=== PATIENT | male | born 1955 | race Hispanic/Latino ===

== ENCOUNTER 2019-10-23 13:27 | Emergency (ER) | payer MEDICARE ==
[2019-10-23] MEDS ORDERED: ONDANSETRON 4 MG/2 ML INJ IV ONE (13:40)
[2019-10-23] MEDS ORDERED: HYDROmorphone 1 MG/1 ML INJ IV ONE (13:40)
[2019-10-23] MEDS ORDERED: KETOROLAC 30 MG/1 ML INJ IV ONE (13:40)
[2019-10-23] MEDS ORDERED: IPRATROPIUM/ALBUTEROL SULFATE 3 ML AMPUL.NEB IH ONE (13:42)
--- NOTE | 2019-10-23 13:46 | Emergency Department Report ---
HPI - General PUI?: No Time Seen by Provider: 10/23/19 13:31 - HPI HPI: Room 26 The patient is a 64-year-old male present with a chief complaint of low back pain. Patient states he has a history of chronic low back pain requiring surgery with a fusion and plate in 1984. Patient states he also had a vagal nerve stimulator placed. Patient states yesterday he again developed low back pain. Patient denied any preceding trauma or history of fever. Patient denies dysuria ED Past Medical Hx - Past Medical History Hx Hypertension: Yes Hx CVA: Yes (L sided deficits) Hx Diabetes: Yes Hx Psychiatric Treatment: Yes (PTSD) Hx COPD: Yes Additional medical history: high chol, chronic back pain, Acute RF in 2006 that has resolved - Surgical History Additional Surgical History: cath, (unsure what they cathed and what results were) 2006, vagal nerve stimulator implantation, fusion of L4, L5, S1 after fracture. Hardware of the lumbar spine - Family History Family history: no significant - Social History Smoking Status: Current Every Day Smoker (1 pack/day) Substance Use Type: None (Denies illicit drug use), Alcohol (Occasional) - Medications Home Medications: Home Medications Medication Instructions Recorded Confirmed Last Taken Type Baclofen [Lioresal] 5 mg PO Q6HR 10/07/13 10/08/17 10/07/13 History Gabapentin 300 mg PO TID 10/07/13 10/08/17 10/06/17 14:00 History Sertraline [Zoloft] 200 mg PO QDAY 10/07/13 10/08/17 10/06/17 09:00 History Simvastatin (Nf) [Zocor TAB] 40 mg PO QHS 10/07/13 10/08/17 10/06/17 22:00 History lisinopriL [Zestril TAB] 20 mg PO QDAY 10/07/13 10/08/17 10/06/17 09:00 History tiZANidine [Zanaflex 4mg TAB] 8 mg PO DAILY 10/08/17 10/08/17 10/06/17 09:00 History Folic Acid 0.4 mg PO QDAY #30 tablet 10/15/17 Unknown Rx Nicotine [Habitrol] 21 mg TD DAILY #30 patch 10/15/17 Unknown Rx Oxycodone HCl/Acetaminophen 1 each PO Q6HR PRN #14 tablet 10/15/17 Unknown Rx [Percocet 10/325 mg] Thiamine [Vitamin B-1] 100 mg PO QDAY #30 tablet 10/15/17 Unknown Rx ED Review of Systems ROS: Stated complaint: SEVERE BACK PAIN Other details as noted in HPI Constitutional: denies: fever Respiratory: no symptoms reported Endocrine: no symptoms reported Genitourinary: denies: dysuria Musculoskeletal: back pain Physical Exam - Physical Exam Physical Exam: GENERAL: The patient is well-developed well-nourished male lying on stretcher not appearing to be in acute distress. [] HEENT: Normocephalic. Atraumatic. Extraocular motions are intact. Patient has moist mucous membranes. NECK: Supple. Trachea midline CHEST/LUNGS: Clear to auscultation. There is no respiratory distress noted. HEART/CARDIOVASCULAR: Regular. There is no tachycardia. There is no gallop rub or murmur. ABDOMEN: Abdomen is soft, nontender. Patient has normal bowel sounds. There is no abdominal distention. SKIN: There is no rash. There is no edema. There is no diaphoresis. NEURO: The patient is awake, alert, and oriented. The patient is cooperative. The patient has no focal neurologic deficits. The patient has normal speech MUSCULOSKELETAL: There is tenderness of the lumbar spine. There is no evidence of acute injury. ED Course - Reevaluation(s) Reevaluation #1: 10/23/19 14:50 Patient states his pain is improved. Patient states he is under pain management and not allowed to receive prescriptions for pain medication to go home with. ED Medical Decision Making - Radiology Data Radiology results: report reviewed (Lumbar spine x-ray), image reviewed (Lumbar spine x-ray) interpreted by me: Lumbar spine x-ray-no acute fractures, hardware in place, no other foreign body seen - Differential Diagnosis Acute on chronic back pain, occult fracture Critical care attestation.: If time is entered above; I have spent that time in minutes in the direct care of this critically ill patient, excluding procedure time. ED Disposition Clinical Impression: Acute exacerbation of chronic low back pain Disposition: TO HOME OR SELFCARE Is pt being admited?: No Does the pt Need Aspirin: No Condition: Stable Instructions: Acute Low Back Pain (ED), Chronic Back Pain (ED) Additional Instructions: Return to the emergency department should you develop worsening symptoms, inability to tolerate food or liquids, high fever or any other concerns Referrals: PRIMARY CARE, [Referring] - SUZANNE (Please follow-up with your primary physician and pain care physician for further management) Time of Disposition: 14:51
--- NOTE | 2019-10-23 14:32 | XRay Report ---
LUMBAR SPINE 3 VIEWS INDICATION: Low back pain. History of chronic pain COMPARISON: None. FINDINGS: No acute, displaced fracture is seen. There is minimal retrolisthesis of L3 on L4 with mild associated disc space widening anteriorly at th is level. Postsurgical changes are seen at the lower lumbar spine posteriorly. There is mild diffuse spondylosis. CONCLUSION: 1. No acute findings. 2. Degenerative changes, as above. Signer Name: Asa Kothari MD Signed: 10/23/2019 2:27 PM Workstation Name: [email or web address]
[2019-10-23 15:25] VITALS: BP 138/77
== END 2019-10-23 15:20 | disposition home or self-care (01) ==
LOC: ED 13:27
DX: M54.5 Low back pain (principal); G89.29 Other chronic pain; I10 Essential (primary) hypertension; E11.9 Type 2 diabetes mellitus without complications; J44.9 Chronic obstructive pulmonary disease, unspecified; F17.200 Nicotine dependence, unspecified, uncomplicated; Z86.73 Personal history of transient ischemic attack (TIA), and cerebral infarction without residual deficits; Z98.890 Other specified postprocedural states; Z79.899 Other long term (current) drug therapy; Z88.8 Allergy status to other drugs, medicaments and biological substances
CPT/HCPCS: 72100; 94640; 96374; 96375; 99284; J1170; J1885; J2405; 94644

== ENCOUNTER 2020-04-04 23:36 | Observation (INO) | payer MEDICARE ==
--- NOTE | 2020-04-05 00:12 | Emergency Department Report ---
ED General Adult HPI - General Chief complaint: Hyperglycemia Stated complaint: HIGH BLOOD SUGAR Time Seen by Provider: 04/05/20 00:07 Source: patient, EMS Mode of arrival: Ambulatory Limitations: No Limitations - History of Present Illness Initial comments: 64-year-old male, history of diabetes, presents to ED with elevated glucose. Patient states his glucose has been running high over the last month or so. Patient states he currently takes Metformin, glipizide, and Jardiance. Patient states he recently had an appointment with his physician and another diabetic medication was added, however, he does not know the name and he has not yet picked it up from the pharmacy. Patient denies any fever, nausea, vomiting. Patient reports a chronic cough for the last 3 months. He attributes this to the fact that he started smoking again. Patient states he was tested for Covid and was negative. Patient reports alcohol and tobacco use. -: month(s) (1) Consistency: intermittent Improves with: none Worsens with: none Associated Symptoms: cough. denies: fever/chills, nausea/vomiting Treatments Prior to Arrival: none - Related Data Home Medications Medication Instructions Recorded Confirmed Last Taken Baclofen [Lioresal] 5 mg PO Q6HR 10/07/13 10/08/17 10/07/13 Gabapentin 300 mg PO TID 10/07/13 10/08/17 10/06/17 14:00 Sertraline [Zoloft] 200 mg PO QDAY 10/07/13 10/08/17 10/06/17 09:00 Simvastatin (Nf) [Zocor TAB] 40 mg PO QHS 10/07/13 10/08/17 10/06/17 22:00 lisinopriL [Zestril TAB] 20 mg PO QDAY 10/07/13 10/08/17 10/06/17 09:00 tiZANidine [Zanaflex 4mg TAB] 8 mg PO DAILY 10/08/17 10/08/17 10/06/17 09:00 Previous Rx's Medication Instructions Recorded Last Taken Type Folic Acid 0.4 mg PO QDAY #30 tablet 10/15/17 Unknown Rx Nicotine [Habitrol] 21 mg TD DAILY #30 patch 10/15/17 Unknown Rx Oxycodone HCl/Acetaminophen 1 each PO Q6HR PRN #14 tablet 10/15/17 Unknown Rx [Percocet 10/325 mg] Thiamine [Vitamin B-1] 100 mg PO QDAY #30 tablet 10/15/17 Unknown Rx Allergies Allergy/AdvReac Type Severity Reaction Status Date / Time cephalexin monohydrate Allergy Anaphylaxis Verified 10/07/13 11:58 [From Keflex] ED Review of Systems ROS: Stated complaint: HIGH BLOOD SUGAR Other details as noted in HPI Comment: All other systems reviewed and negative Constitutional: denies: chills, fever Respiratory: cough. denies: shortness of breath Gastrointestinal: denies: nausea, vomiting ED Past Medical Hx - Past Medical History Hx Hypertension: Yes Hx CVA: Yes (L sided deficits) Hx Diabetes: Yes Hx Psychiatric Treatment: Yes (PTSD) Hx COPD: Yes Additional medical history: high chol, chronic back pain, Acute RF in 2006 that has resolved - Surgical History Additional Surgical History: cath, (unsure what they cathed and what results were) 2006, vagal nerve stimulator implantation, fusion of L4, L5, S1 after fracture. Hardware of the lumbar spine - Social History Smoking Status: Current Every Day Smoker (1 pack/day) Substance Use Type: None (Denies illicit drug use), Alcohol (Occasional) - Medications Home Medications: Home Medications Medication Instructions Recorded Confirmed Last Taken Type Baclofen [Lioresal] 5 mg PO Q6HR 10/07/13 10/08/17 10/07/13 History Gabapentin 300 mg PO TID 10/07/13 10/08/17 10/06/17 14:00 History Sertraline [Zoloft] 200 mg PO QDAY 10/07/13 10/08/17 10/06/17 09:00 History Simvastatin (Nf) [Zocor TAB] 40 mg PO QHS 10/07/13 10/08/17 10/06/17 22:00 History lisinopriL [Zestril TAB] 20 mg PO QDAY 10/07/13 10/08/17 10/06/17 09:00 History tiZANidine [Zanaflex 4mg TAB] 8 mg PO DAILY 10/08/17 10/08/17 10/06/17 09:00 History Folic Acid 0.4 mg PO QDAY #30 tablet 10/15/17 Unknown Rx Nicotine [Habitrol] 21 mg TD DAILY #30 patch 10/15/17 Unknown Rx Oxycodone HCl/Acetaminophen 1 each PO Q6HR PRN #14 tablet 10/15/17 Unknown Rx [Percocet 10/325 mg] Thiamine [Vitamin B-1] 100 mg PO QDAY #30 tablet 10/15/17 Unknown Rx ED Physical Exam - General Limitations: No Limitations General appearance: alert, in no apparent distress, obese - Head Head exam: Present: atraumatic, normocephalic - Eye Eye exam: Present: normal appearance, EOMI - ENT ENT exam: Present: mucous membranes moist - Neck Neck exam: Present: normal inspection - Respiratory Respiratory exam: Present: normal lung sounds bilaterally. Absent: respiratory distress - Cardiovascular Cardiovascular Exam: Present: regular rate, normal rhythm - GI/Abdominal GI/Abdominal exam: Present: soft. Absent: distended, tenderness - Extremities Exam Extremities exam: Present: normal inspection - Neurological Exam Neurological exam: Present: alert, oriented X3 - Psychiatric Psychiatric exam: Present: normal affect, normal mood - Skin Skin exam: Present: warm, dry, intact, normal color ED Course Vital Signs 04/05/20 04/05/20 04/05/20 00:08 00:16 00:30 Temperature 98.1 F Pulse Rate 80 Respiratory 22 Rate Blood Pressure 101/73 115/70 115/70 O2 Sat by Pulse 94 93 94 Oximetry 04/05/20 04/05/20 04/05/20 00:45 01:00 01:10 Temperature Pulse Rate Respiratory 19 20 Rate Blood Pressure 135/72 135/72 O2 Sat by Pulse 85 90 Oximetry 04/05/20 01:15 Temperature Pulse Rate 75 Respiratory 19 Rate Blood Pressure 110/73 O2 Sat by Pulse 91 Oximetry ED Medical Decision Making - Lab Data Result diagrams: 04/05/20 01:15 04/05/20 01:15 - Radiology Data Radiology results: report reviewed, image reviewed - Medical Decision Making Patient presents to ED with hyperglycemia. He does not appear to be in DKA. Initial glucose of 515. Glucose is improved to 205 following IV fluids and insulin. The ED stay patient's O2 sats dropped to 85% on room. Patient was placed on 4 L O2 and chest x-ray was ordered. Chest x-ray shows bilateral pneumonia, concerning for COVID-19. Blood cultures drawn, Covid markers sent. Azithromycin given; Rocephin held due to Keflex allergy. Decadron given. Patient will be admitted to hospitalist, Dr. Byrne, for further management Critical Care Time: Yes Critical care time in (mins) excluding proc time.: 35 Critical care attestation.: If time is entered above; I have spent that time in minutes in the direct care of this critically ill patient, excluding procedure time. Critical Care Time: 35 min ED Disposition Clinical Impression: Hypoxia, Pneumonia, Suspected 2019 novel coronavirus infection, Hyperglycemia due to type 2 diabetes mellitus Disposition: OP ADMIT IP TO THIS HOSP Is pt being admited?: Yes Condition: Stable
[2020-04-05 01:33] LABS: Basophils # (Auto) 0.1 K/mm3 (0.0-0.1); Basophils % (Auto) 1.5 % (0.0-1.8); Eosinophils # (Auto) 0.1 K/mm3 (0.0-0.4); Eosinophils % (Auto) 1.9 % (0.0-4.3); Hematocrit 42.1 % (35.5-45.6); Hemoglobin 14.3 gm/dl (11.8-15.2); Lymphocytes # (Auto) 1.4 K/mm3 (1.2-5.4); Lymphocytes % (Auto) 28.6 % (13.4-35.0); Mean Corpuscular HGB Conc 34 % (32-34); Mean Corpuscular Volume 100 fl (84-94); Monocytes # (Auto) 0.4 K/mm3 (0.0-0.8); Monocytes % (Auto) 7.5 % (0.0-7.3); Platelet Count 162 K/mm3 (140-440); Red Blood Count 4.23 M/mm3 (3.65-5.03); Red Cell Distribution Width 13.6 % (13.2-15.2)
[2020-04-05 01:39] LABS: Bilirubin,Urine NEG (Negative); Blood,Urine NEG (Negative); Color,Urine Straw (Yellow); Protein,Urine <15 mg/dL mg/dL (Negative); Urobilinogen,Urine < 2.0 mg/dL (<2.0); WBC,Urine < 1.0 /HPF (0.0-6.0)
[2020-04-05 02:11] LABS: BUN/Creatinine Ratio 11; Blood Urea Nitrogen 12 mg/dL (9-20); Calcium 9.2 mg/dL (8.4-10.2); Hemolysis Index 1
[2020-04-05] MEDS ORDERED: INSULIN REGULAR, HUMAN 100 UNITS/1 ML IV ONE (02:24)
[2020-04-05] MEDS ORDERED: SODIUM CHLORIDE 0.9% 1000 ML 1,000 ML IV ONE (02:24)
--- NOTE | 2020-04-05 03:27 | XRay Report ---
CHEST 1 VIEW 04/05/2020 2:20 AM INDICATION / CLINICAL INFORMATION: cough. COMPARISON: None available. FINDINGS: SUPPORT DEVICES: None. HEART / MEDIASTINUM: No significant abnormality. LUNGS / PLEURA: Moderate streaky bilateral parenchymal disease No pneumothorax. ADDITIONAL FINDINGS: No significant additional findings. IMPRESSION: 1. Bilateral pneumonia. Consider Covid testing Signer Name: Dmitri Noel MD Signed: 04/05/2020 3:23 AM Workstation Name: [id number]
[2020-04-05] MEDS ORDERED: DEXAMETHASONE 4 MG TAB PO ONE (03:44)
[2020-04-05] MEDS ORDERED: AZITHROMYCIN 250 MG TAB PO ONE (03:45)
[2020-04-05] MEDS ORDERED: DEXTROSE 50% IN WATER (25GM) 50 ML SYRINGE IV PRN (05:10)
--- NOTE | 2020-04-05 07:16 | History and Physical Report ---
History of Present Illness Date of examination: 04/05/20 Date of admission: 04/05/20 04:16 Chief complaint: Hyperglycemia and Shortness of breath History of present illness: Patient is a 64 year old male who presented with history of hyperglycemia in the last few days and is yet to [employer] a newly prescribed oral hyperglycemic medication added to his medications. Patient developed shortness of breath while in the ED and denied history of fever, chills, nausea or vomiting.. Past History Past Medical History: COPD, diabetes, hypertension, renal failure, stroke, other (PTSD , CHRONIC BACK PAIN) Past Surgical History: Other (CARDIAC CATH. VAGAL NERVE STIMULATOR INPLANT, L4/5/S1 FUSION SURGERY) Social history: smoking, alcohol abuse Family history: no significant family history Medications and Allergies Allergies Allergy/AdvReac Type Severity Reaction Status Date / Time cephalexin monohydrate Allergy Anaphylaxis Verified 10/07/13 11:58 [From Keflex] Home Medications Medication Instructions Recorded Confirmed Last Taken Type Baclofen [Lioresal] 5 mg PO Q6HR 10/07/13 10/08/17 10/07/13 History Gabapentin 300 mg PO TID 10/07/13 10/08/17 10/06/17 14:00 History Sertraline [Zoloft] 200 mg PO QDAY 10/07/13 10/08/17 10/06/17 09:00 History Simvastatin (Nf) [Zocor TAB] 40 mg PO QHS 10/07/13 10/08/17 10/06/17 22:00 History lisinopriL [Zestril TAB] 20 mg PO QDAY 10/07/13 10/08/17 10/06/17 09:00 History tiZANidine [Zanaflex 4mg TAB] 8 mg PO DAILY 10/08/17 10/08/17 10/06/17 09:00 History Folic Acid 0.4 mg PO QDAY #30 tablet 10/15/17 Unknown Rx Nicotine [Habitrol] 21 mg TD DAILY #30 patch 10/15/17 Unknown Rx Oxycodone HCl/Acetaminophen 1 each PO Q6HR PRN #14 tablet 10/15/17 Unknown Rx [Percocet 10/325 mg] Thiamine [Vitamin B-1] 100 mg PO QDAY #30 tablet 10/15/17 Unknown Rx Active Meds: Active Medications Dextrose (Dextrose 50% In Water (25gm) 50 Ml Syringe) 50 ml IV Q30MIN PRN; Protocol PRN Reason: Hypoglycemia Folic Acid (Folic Acid 1 Mg Tab) 0.5 mg PO DAILY [facility] Gabapentin (Gabapentin 300 Mg Cap) 300 mg PO TID [facility] Meropenem (Merrem/Ns 500 Mg/50 Ml) 500 mg in 50 mls @ 50 mls/hr IV Q6H [facility] Azithromycin (Zithromax/Ns) 500 mg in 250 mls @ 250 mls/hr IV Q24H [facility] Insulin Human Regular (Insulin Regular, Human 100 Units/1 Ml) 0 units SUB-Q AC [facility]; Protocol Insulin Human Regular (Insulin Regular, Human 100 Units/1 Ml) 0 units SUB-Q QHS [facility]; Protocol Lisinopril (Lisinopril 20 Mg Tab) 20 mg PO QDAY [facility] Nicotine (Nicotine 21 Mg/24 Hr Patch) 21 mg TD DAILY [facility] Pneumococcal Polyvalent Vaccine (Pneumococcal 23 Valent 0.5 Ml Vial) 0.5 ml IM .ONCE ONE Stop: 04/05/20 12:01 Pravastatin Sodium (Pravastatin 80 Mg Tab) 80 mg PO QHS [facility] Sertraline HCl (Sertraline 100 Mg Tab) 200 mg PO QDAY [facility] Tizanidine HCl (Tizanidine Tab 4 Mg Tab) 8 mg PO DAILY [facility] Review of Systems Constitutional: no fever, no chills, no weakness Eyes: bilateral: other (NO BILATERAL EYE SYMPTOMS) Ears, nose, mouth and throat: no ear pain Cardiovascular: shortness of breath, no chest pain, no palpitations, no syncope, no lightheadedness Respiratory: shortness of breath, wheezing, no cough, no congestion Gastrointestinal: no nausea, no vomiting, no diarrhea, no constipation, no hematemesis, no hematochezia Genitourinary Male: no dysuria, no hematuria, no flank pain Rectal: no pain Musculoskeletal: no neck stiffness, no neck pain Integumentary: no rash, no pruritis, no redness Neurological: no paralysis, no weakness, no numbness, no tingling, no seizures, no syncope, no tremors, no ataxia, no convulsions, no change in speech, no change in mentation, no confusion Psychiatric: no anxiety, no depression Endocrine: polydipsia, polyuria, nocturia Hematologic/Lymphatic: no easy bruising, no easy bleeding, no lymphadenopathy Exam - Constitutional Vitals: Temp Pulse Resp BP Pulse Ox 98.1 F 90 18 142/75 91 04/05/20 05:45 04/05/20 05:45 04/05/20 05:45 04/05/20 05:45 04/05/20 05:45 General appearance: Present: no acute distress - EENT Eyes: Present: PERRL ENT: hearing intact, clear oral mucosa - Neck Neck: Present: supple, normal ROM - Respiratory Respiratory: bilateral: wheezing - Cardiovascular Rhythm: regular Heart Sounds: Present: S1 & S2. Absent: gallop, systolic murmur, diastolic murmur - Extremities Extremities: no ischemia, No edema Peripheral Pulses: within normal limits - Abdominal General gastrointestinal: Present: soft, non-tender, non-distended. Absent: tender, distended, rigid, hepatomegaly, splenomegaly Male genitourinary: Present: deferred - Rectal Rectal Exam: deferred - Integumentary Integumentary: Present: clear, warm, dry. Absent: jaundice, rash, clammy - Musculoskeletal Musculoskeletal: strength equal bilaterally - Psychiatric Psychiatric: appropriate mood/affect HEART Score - HEART Score Risk factors: 1-2 risk factors Troponin: < normal limit Results - Labs CBC & Chem 7: 04/05/20 01:15 04/05/20 04:03 Labs: Laboratory Last Values WBC 5.0 K/mm3 (4.5-11.0) 04/05/20 01:15 RBC 4.23 M/mm3 (3.65-5.03) 04/05/20 01:15 Hgb 14.3 gm/dl (11.8-15.2) 04/05/20 01:15 Hct 42.1 % (35.5-45.6) 04/05/20 01:15 MCV 100 fl (84-94) H 04/05/20 01:15 MCH 34 pg (28-32) H 04/05/20 01:15 MCHC 34 % (32-34) 04/05/20 01:15 RDW 13.6 % (13.2-15.2) 04/05/20 01:15 Plt Count 162 K/mm3 (140-440) 04/05/20 01:15 Lymph % (Auto) 28.6 % (13.4-35.0) 04/05/20 01:15 Forrest % (Auto) 7.5 % (0.0-7.3) H 04/05/20 01:15 Eos % (Auto) 1.9 % (0.0-4.3) 04/05/20 01:15 Baso % (Auto) 1.5 % (0.0-1.8) 04/05/20 01:15 Lymph # (Auto) 1.4 K/mm3 (1.2-5.4) 04/05/20 01:15 Forrest # (Auto) 0.4 K/mm3 (0.0-0.8) 04/05/20 01:15 Eos # (Auto) 0.1 K/mm3 (0.0-0.4) 04/05/20 01:15 Baso # (Auto) 0.1 K/mm3 (0.0-0.1) 04/05/20 01:15 Seg Neutrophils % 60.5 % (40.0-70.0) 04/05/20 01:15 Seg Neutrophils # 3.0 K/mm3 (1.8-7.7) 04/05/20 01:15 D-Dimer 567.59 ng/mlDDU (0-234) H 04/05/20 04:03 VBG pH 7.294 (7.320-7.420) L 04/05/20 01:15 Sodium 133 mmol/L (137-145) L 04/05/20 01:15 Potassium 4.3 mmol/L (3.6-5.0) 04/05/20 01:15 Chloride 94.0 mmol/L (98-107) L 04/05/20 01:15 Carbon Dioxide 27 mmol/L (22-30) 04/05/20 01:15 Anion Gap 16 mmol/L 04/05/20 01:15 BUN 12 mg/dL (9-20) 04/05/20 01:15 Creatinine 1.1 mg/dL (0.8-1.3) 04/05/20 01:15 Estimated GFR > 60 ml/min 04/05/20 01:15 BUN/Creatinine Ratio 11 % 04/05/20 01:15 Glucose 209 mg/dL (75-100) H 04/05/20 04:03 POC Glucose 523 mg/dL (70-105) H 04/05/20 00:29 Ketones Quantitative Negative (Negative) 04/05/20 01:15 Calcium 9.2 mg/dL (8.4-10.2) 04/05/20 01:15 Ferritin 69.5 ng/mL (30.0-300.0) 04/05/20 04:03 Lactate Dehydrogenase 169 units/L (91-180) 04/05/20 04:03 C-Reactive Protein 1.00 mg/dL (0.00-1.30) 04/05/20 04:03 Urine Color Straw (Yellow) 04/05/20 01:10 Urine Turbidity Clear (Clear) 04/05/20 01:10 Urine pH 5.0 (5.0-7.0) 04/05/20 01:10 Ur Specific [place] 1.023 (1.003-1.030) 04/05/20 01:10 Urine Protein <15 mg/dl mg/dL (Negative) 04/05/20 01:10 Urine Glucose (UA) >=500 mg/dL (Negative) 04/05/20 01:10 Urine Ketones Neg mg/dL (Negative) 04/05/20 01:10 Urine Blood Neg (Negative) 04/05/20 01:10 Urine Nitrite Neg (Negative) 04/05/20 01:10 Urine Bilirubin Neg (Negative) 04/05/20 01:10 Urine Urobilinogen < 2.0 mg/dL (<2.0) 04/05/20 01:10 Ur Leukocyte Esterase Neg (Negative) 04/05/20 01:10 Urine WBC (Auto) < 1.0 /HPF (0.0-6.0) 04/05/20 01:10 Urine RBC (Auto) 1.0 /HPF (0.0-6.0) 04/05/20 01:10 U Epithel Cells (Auto) < 1.0 /HPF (0-13.0) 04/05/20 01:10 Assessment and Plan - Patient Problems (1) Hyperglycemia due to type 2 diabetes mellitus Current Visit: Yes Status: Acute Plan to address problem: 1. ACCUCHECKS 2. SLIDING SCALE INSULIN COVERAGE (2) Pneumonia Current Visit: Yes Status: Acute Plan to address problem: 1. I.V ZITHROMAX AND I.V MEROPENEM ANTIBIOTICS 2. PO TYLENOL FOR FEVER 3. OXYGEN BY NASAL CANULA
[2020-04-05] MEDS: MEROPENEM/NS 500 MG/50 ML 500 MG/50 ML BAG IV SCH ×2 (07:23→12:05)
[2020-04-05] MEDS: GABAPENTIN 300 MG CAP PO SCH ×3 (07:24→12:59)
[2020-04-05] MEDS: INSULIN REGULAR, HUMAN 100 UNITS/1 ML SUB-Q SCH ×3 (09:13→17:14)
[2020-04-05] MEDS ORDERED: tiZANidine TAB 4 MG TAB PO SCH (10:00)
[2020-04-05] MEDS ORDERED: LISINOPRIL 20 MG TAB PO SCH (10:00)
[2020-04-05] MEDS ORDERED: SERTRALINE 100 MG TAB PO SCH (10:00)
[2020-04-05] MEDS ORDERED: NICOTINE 21 MG/24 HR PATCH TD SCH (10:00)
[2020-04-05] MEDS ORDERED: FOLIC ACID 1 MG TAB PO SCH (10:00)
[2020-04-05] MEDS ORDERED: FOLIC ACID 0.4 MG PO SCH (10:00)
[2020-04-05] MEDS ORDERED: ALBUTEROL 2.5 MG/3 ML NEBU IH PRN (11:00)
[2020-04-05] MEDS ORDERED: PNEUMOCOCCAL 23 Valent 0.5 ML VIAL IM ONE (12:00)
[2020-04-05] MEDS ORDERED: FLU VACC QUAD 2020-2021 (6 months +)/PF 60 0.5 ML SYRINGE IM ONE (12:00)
[2020-04-05] MEDS: guaiFENesin/CODEINE 100-10MG ORAL LIQD 5 ML PO PRN ×2 (12:05→22:06)
[2020-04-05] MEDS ORDERED: ACETAMINOPHEN 325 MG TAB PO PRN (12:12)
[2020-04-05] MEDS ORDERED: ONDANSETRON 4 MG/2 ML INJ IV PRN (12:12)
[2020-04-05] MEDS ORDERED: IPRATROPIUM/ALBUTEROL SULFATE 3 ML AMPUL.NEB IH SCH (14:00)
[2020-04-05] MEDS: oxyCODONE /ACETAMINOPHEN 5-325MG TAB PO PRN ×2 (14:45→23:11)
[2020-04-05] MEDS ORDERED: INSULIN GLARGINE 100 UNITS/ML SUB-Q ONE (16:30)
[2020-04-05] MEDS ORDERED: INSULIN REGULAR, HUMAN 100 UNITS/1 ML SUB-Q SCH (22:00)
[2020-04-05] MEDS ORDERED: PRAVASTATIN 80 MG TAB PO SCH (22:00)
[2020-04-05] MEDS ORDERED: GABAPENTIN 300 MG CAP PO SCH (22:00)
[2020-04-05] MEDS ORDERED: NON-FORMULARY EACH (Simvastatin (Nf) 20 MG Tablet) PO SCH (22:00)
[2020-04-06] MEDS ORDERED: diphenhydrAMINE 50 MG/ML VIAL IV ONE (02:57)
[2020-04-06] MEDS ORDERED: AZITHROMYCIN/NS 500 MG/250 ML 500 MG/250 ML BAG IV SCH (06:00)
[2020-04-06] MEDS ORDERED: methylPREDNISolone Sod Suc 40 MG in SODIUM CHLORIDE 0.9% 100 ML IV SCH (09:10)
[2020-04-06] MEDS ORDERED: AZITHROMYCIN 250 MG TAB PO SCH (10:30)
[2020-04-06] MEDS ORDERED: methylPREDNISolone Sod Succinate 40 MG/1 ML INJ IV SCH (11:00)
--- NOTE | 2020-04-06 11:13 | Progress Note ---
Assessment and Plan Assessment and plan: 64-year-old male, history of diabetes, presents to ED with elevated glucose. Patient states his glucose has been running high over the last month or so. Patient states he currently takes Metformin, glipizide, and Jardiance. Patient states he recently had an appointment with his physician and another diabetic medication was added, however, he does not know the name and he has not yet picked it up from the pharmacy. Patient denies any fever, nausea, vomiting. Patient reports a chronic cough for the last 3 months. He attributes this to the fact that he started smoking again. Patient states he was tested for Covid and was negative. Patient reports alcohol and tobacco use. He was found to have BG in the 500s and while he was in the ED, he was noted to have hypoxia and a chest xray performed shows bilateral iinfcitlrates so he was admitted for COVID -19 rule out Problems Diabetes mellitus-uncontrolled Takes metformin, glipizide and jardiance at home Hemoglobin A1c 10.9 Continue insulin regimen Diabetic education Endocrine referral at discharge Acute hypoxic respiratory failure secondary to COPD exacerbation Continue oxygen supplementation COVID 19 negative COPD exacerbation Continue Solu-Medrol 40 mg every 6 Azithromycin Albuterol PRN Smoking cessaton has been advised Pulmonary referral at discharge Tobacco abuse Smoking cessation counseling provided DVT ppx - heparin products History Interval history: 04/06. COVID-19 test negative Patient is wheezing on exam. Continue Solu-Medrol Blood glucose still elevated. Adjusting insulin regimen Hospitalist Physical - Physical exam Narrative exam: VITAL SIGNS: Reviewed. GENERAL: Awake HEAD: No signs of head trauma. EYES: Pupils are equal. Extraocular motions intact. MOUTH: Oropharynx is normal. NECK: No adenopathy, no JVD. CHEST: Diffuse expiratory wheezes CARDIAC: normal S1 and S2, without murmurs, gallops, or rubs. ABDOMEN: Soft, non tender and non distended. No rebound or guarding, and no masses palpated. Bowel Sounds normal. MUSCULOSKELETAL: No edema NEUROLOGIC EXAM: Alert and oriented x3. No focal neurologic deficits SKIN: No obvious lesions - Constitutional Vitals: Temp Pulse Resp BP Pulse Ox 97.9 F 74 16 123/70 97 04/06/20 04:23 04/06/20 04:23 04/06/20 04:23 04/06/20 04:23 04/06/20 04:23 HEART Score - HEART Score Risk factors: 1-2 risk factors Troponin: < normal limit Results - Labs CBC & Chem 7: 04/05/20 01:15 04/05/20 04:03 Labs: Laboratory Last Values WBC 5.0 K/mm3 (4.5-11.0) 04/05/20 01:15 RBC 4.23 M/mm3 (3.65-5.03) 04/05/20 01:15 Hgb 14.3 gm/dl (11.8-15.2) 04/05/20 01:15 Hct 42.1 % (35.5-45.6) 04/05/20 01:15 MCV 100 fl (84-94) H 04/05/20 01:15 MCH 34 pg (28-32) H 04/05/20 01:15 MCHC 34 % (32-34) 04/05/20 01:15 RDW 13.6 % (13.2-15.2) 04/05/20 01:15 Plt Count 162 K/mm3 (140-440) 04/05/20 01:15 Lymph % (Auto) 28.6 % (13.4-35.0) 04/05/20 01:15 [place] % (Auto) 7.5 % (0.0-7.3) H 04/05/20 01:15 Eos % (Auto) 1.9 % (0.0-4.3) 04/05/20 01:15 Baso % (Auto) 1.5 % (0.0-1.8) 04/05/20 01:15 Lymph # (Auto) 1.4 K/mm3 (1.2-5.4) 04/05/20 01:15 [place] # (Auto) 0.4 K/mm3 (0.0-0.8) 04/05/20 01:15 Eos # (Auto) 0.1 K/mm3 (0.0-0.4) 04/05/20 01:15 Baso # (Auto) 0.1 K/mm3 (0.0-0.1) 04/05/20 01:15 Seg Neutrophils % 60.5 % (40.0-70.0) 04/05/20 01:15 Seg Neutrophils # 3.0 K/mm3 (1.8-7.7) 04/05/20 01:15 D-Dimer 567.59 ng/mlDDU (0-234) H 04/05/20 04:03 VBG pH 7.294 (7.320-7.420) L 04/05/20 01:15 Sodium 133 mmol/L (137-145) L 04/05/20 01:15 Potassium 4.3 mmol/L (3.6-5.0) 04/05/20 01:15 Chloride 94.0 mmol/L (98-107) L 04/05/20 01:15 Carbon Dioxide 27 mmol/L (22-30) 04/05/20 01:15 Anion Gap 16 mmol/L 04/05/20 01:15 BUN 12 mg/dL (9-20) 04/05/20 01:15 Creatinine 1.1 mg/dL (0.8-1.3) 04/05/20 01:15 Estimated GFR > 60 ml/min 04/05/20 01:15 BUN/Creatinine Ratio 11 % 04/05/20 01:15 Glucose 209 mg/dL (75-100) H 04/05/20 04:03 POC Glucose 260 mg/dL (70-105) H 04/05/20 16:34 Hemoglobin A1c 10.9 % (4-6) H 04/06/20 05:24 Ketones Quantitative Negative (Negative) 04/05/20 01:15 Calcium 9.2 mg/dL (8.4-10.2) 04/05/20 01:15 Ferritin 69.5 ng/mL (30.0-300.0) 04/05/20 04:03 Lactate Dehydrogenase 169 units/L (91-180) 04/05/20 04:03 C-Reactive Protein 1.00 mg/dL (0.00-1.30) 04/05/20 04:03 NT-Pro-B Natriuret Pep 283.8 pg/mL (0-900) 04/06/20 05:24 Procalcitonin 0.10 ng/mL (<0.15) 04/05/20 04:03 Urine Color Straw (Yellow) 04/05/20 01:10 Urine Turbidity Clear (Clear) 04/05/20 01:10 Urine pH 5.0 (5.0-7.0) 04/05/20 01:10 Ur Specific [place] 1.023 (1.003-1.030) 04/05/20 01:10 Urine Protein <15 mg/dl mg/dL (Negative) 04/05/20 01:10 Urine Glucose (UA) >=500 mg/dL (Negative) 04/05/20 01:10 Urine Ketones Neg mg/dL (Negative) 04/05/20 01:10 Urine Blood Neg (Negative) 04/05/20 01:10 Urine Nitrite Neg (Negative) 04/05/20 01:10 Urine Bilirubin Neg (Negative) 04/05/20 01:10 Urine Urobilinogen < 2.0 mg/dL (<2.0) 04/05/20 01:10 Ur Leukocyte Esterase Neg (Negative) 04/05/20 01:10 Urine WBC (Auto) < 1.0 /HPF (0.0-6.0) 04/05/20 01:10 Urine RBC (Auto) 1.0 /HPF (0.0-6.0) 04/05/20 01:10 U Epithel Cells (Auto) < 1.0 /HPF (0-13.0) 04/05/20 01:10 Coronavirus (PCR) Negative (Negative) 04/05/20 10:02 Microbiology: Microbiology 04/05/20 03:58 Peripheral/Venous Blood Culture - Preliminary NO GROWTH AFTER 24 HOURS 04/05/20 04:03 Peripheral/Venous Blood Culture - Preliminary NO GROWTH AFTER 24 HOURS Crawford/IV: Voiding Method Toilet Active Medications - Current Medications Current Medications: Generic Name Dose Route Start Last Admin Trade Name Freq PRN Reason Stop Dose Admin Acetaminophen 650 mg 04/05/20 12:12 Acetaminophen 325 Mg Tab PO Q6H PRN Pain, Mild (1-3) Azithromycin 250 mg 04/06/20 10:30 Azithromycin 250 Mg Tab PO 04/10/20 10:29 QDAY MURPHY Protocol Dextrose 50 ml 04/05/20 05:10 Dextrose 50% In Water (25gm) 50 Ml Syringe IV Q30MIN PRN Hypoglycemia Protocol Folic Acid 0.5 mg 04/05/20 10:00 04/05/20 09:14 Folic Acid 1 Mg Tab PO 0.5 mg DAILY MURPHY Administration Gabapentin 300 mg 04/05/20 22:00 04/05/20 22:06 Gabapentin 300 Mg Cap PO 300 mg HS MURPHY Administration Insulin Human Regular 0 units 04/05/20 07:30 04/05/20 17:14 Insulin Regular, Human 100 Units/1 Ml SUB-Q 3 units AC [facility] Administration Protocol Insulin Human Regular 0 units 04/05/20 22:00 04/05/20 23:17 Insulin Regular, Human 100 Units/1 Ml SUB-Q 2 units QHS [facility] Administration Protocol Lisinopril 20 mg 04/05/20 10:00 04/05/20 09:14 Lisinopril 20 Mg Tab PO 20 mg QDAY [facility] Administration Methylprednisolone Sodium Succinate 40 mg 04/06/20 11:00 Methylprednisolone Sod Succinate 40 Mg/1 Ml Inj IV Q8H MURPHY Nicotine 21 mg 04/05/20 10:00 04/05/20 09:15 Nicotine 21 Mg/24 Hr Patch TD 21 mg DAILY [facility] Administration Ondansetron HCl 4 mg 04/05/20 12:12 04/05/20 12:41 Ondansetron 4 Mg/2 Ml Inj IV 4 mg Q8H PRN Administration Nausea And Vomiting Oxycodone/Acetaminophen 1 tab 04/05/20 14:25 04/05/20 23:11 Oxycodone /Acetaminophen 5-325mg Tab PO 1 tab Q8H PRN Administration Pain, Moderate (4-6) Pneumococcal Polyvalent Vaccine 0.5 ml 04/07/20 12:00 Pneumococcal 23 Valent 0.5 Ml Vial IM 04/07/20 12:01 .ONCE ONE Pravastatin Sodium 80 mg 04/05/20 22:00 04/05/20 21:57 Pravastatin 80 Mg Tab PO 80 mg QHS [facility] Administration Pseudoephedrine/Acetam/Chlorphenir 10 ml 04/05/20 11:00 04/05/20 22:06 Guaifenesin/Codeine 100-10mg Oral Liqd 5 Ml PO 10 ml Q4H PRN Administration Cough Sertraline HCl 200 mg 04/05/20 10:00 04/05/20 09:14 Sertraline 100 Mg Tab PO 200 mg QDAY [facility] Administration Tizanidine HCl 8 mg 04/05/20 10:00 04/05/20 09:16 Tizanidine Tab 4 Mg Tab PO 8 mg DAILY MURPHY Administration
[2020-04-06] MEDS ORDERED: INSULIN GLARGINE 100 UNITS/ML SUB-Q SCH (12:00)
[2020-04-06 13:11] VITALS: BP 127/70
[2020-04-06] MEDS ORDERED: ALBUTEROL 2.5 MG/3 ML NEBU IH PRN (13:53)
--- NOTE | 2020-04-06 13:58 | Discharge Summary ---
Providers - Providers Date of Admission: 04/05/20 04:16 Date of discharge: 04/06/20 Attending physician: CHANTELLE MELENDEZ 04/05/20 06:21 Physical Therapy Evaluation and Treat [CONS] Routine Comment: Reason For Exam: has cane in room, uses wheelchair at home Hospitalization Condition: Stable Hospital course: 64-year-old male, history of diabetes, presents to ED with elevated glucose. Patient states his glucose has been running high over the last month or so. Patient states he currently takes Metformin, glipizide, and Jardiance. Patient states he recently had an appointment with his physician and another diabetic medication was added, however, he does not know the name and he has not yet picked it up from the pharmacy. Patient denies any fever, nausea, vomiting. Patient reports a chronic cough for the last 3 months. He attributes this to the fact that he started smoking again. Patient states he was tested for Covid and was negative. Patient reports alcohol and tobacco use. He was found to have elevated blood glucose and while he was in the ED, he was noted to have hypoxia and a chest xray performed shows bilateral infiltrates so he was admitted for COVID -19 rule out. Patient started on dexamethasone and antibiotics. Patient's COVID-19 test came out negative. Patient remained hypoxic and was noted to have persistent bilateral wheezing on exam. Patient smokes tobacco. Patient was started on Solu-Medrol 40 every 8 and azithromycin. His blood sugar is slightly better currently on Lantus 12 units twice daily and regular insulin sliding scale. Patient's hemoglobin A1c is 10.9. Discussed case with [facility] who agrees for patient to be transferred to [facility]. Patient agrees with transfer and will be discharged to another facility. Disposition: DC/TX-70 ANOTHER TYPE HLTHCARE - Discharge Diagnoses (1) COPD exacerbation Status: Acute (2) Hyperglycemia due to type 2 diabetes mellitus Status: Acute (3) Hypoxia Status: Acute (4) Tobacco use disorder Status: Acute Core Measure Documentation - Palliative Care Palliative Care/ Comfort Measures: Not Applicable - Core Measures Any of the following diagnoses?: none Exam - Physical Exam Narrative exam: VITAL SIGNS: Reviewed. GENERAL: Awake HEAD: No signs of head trauma. EYES: Pupils are equal. Extraocular motions intact. MOUTH: Oropharynx is normal. NECK: No adenopathy, no JVD. CHEST: Diffuse expiratory wheezes CARDIAC: normal S1 and S2, without murmurs, gallops, or rubs. ABDOMEN: Soft, non tender and non distended. No rebound or guarding, and no masses palpated. Bowel Sounds normal. MUSCULOSKELETAL: No edema NEUROLOGIC EXAM: Alert and oriented x3. No focal neurologic deficits SKIN: No obvious lesions - Constitutional Vitals: Temp Pulse Resp BP Pulse Ox 97.9 F 66 20 127/70 96 04/06/20 12:50 04/06/20 12:50 04/06/20 12:50 04/06/20 12:50 04/06/20 12:50 Plan Follow up with: BEVERLEY WRIGHT [Other] - 3-5 Days
[2020-04-07] MEDS ORDERED: FLU VACC QUAD 2020-2021 (6 months +)/PF 60 0.5 ML SYRINGE IM ONE (12:00)
[2020-04-07] MEDS ORDERED: PNEUMOCOCCAL 23 Valent 0.5 ML VIAL IM ONE (12:00)
== END 2020-04-06 16:15 | disposition other institution (70) ==
LOC: ED 23:36 → 3A 04-05 04:16 → 4A 04-05 18:55
PROVIDERS: ADMIT Internal Medicine; ATTEND Internal Medicine
DX: J96.01 Acute respiratory failure with hypoxia (principal); Z20.822 Contact with and (suspected) exposure to COVID-19; E11.65 Type 2 diabetes mellitus with hyperglycemia; J18.9 Pneumonia, unspecified organism; J44.1 Chronic obstructive pulmonary disease with (acute) exacerbation; N19 Unspecified kidney failure; F17.210 Nicotine dependence, cigarettes, uncomplicated; F43.10 Post-traumatic stress disorder, unspecified; Z98.61 Coronary angioplasty status; Z98.890 Other specified postprocedural states; Z86.73 Personal history of transient ischemic attack (TIA), and cerebral infarction without residual deficits; Z79.4 Long term (current) use of insulin
CPT/HCPCS: 36415; 71045; 80048; 81001; 82010; 82728; 82805; 82947; 82962; 83036; 83615; 83880; 84145; 85025; 85379; 86140; 87040; 94640; 96361; 96365; 96366; 96375; 97161; 99291; 99406; A9270; G0378; J1200; J2185; J2405; J7030; J8540; U0003; J1815

== ENCOUNTER 2020-06-18 11:19 | Emergency (ER) | payer MEDICARE ==
--- NOTE | 2020-06-18 11:46 | Emergency Department Report ---
Blank Doc - Documentation Documentation: 65-year-old male that presents with chest pain, epigastric pain and shortness of breath. Exam: Diaphoresis noted on exam with chest pain shortness of breath and epigastric tenderness. 1- This initial assessment/diagnostic orders/clinical plan/ treatment(s) is/are subject to change based on pt's health status, clinical progression and re- assessment by fellow clinical providers in the ED. Further treatment and workup at subsequent clinical provers discretion. Patient/guardians urged not to elope from ED as their condition may be serious if not clinically assessed and managed. 2-cardiac work-up 3-gas charger notified of patient to be brought back [facility].
[2020-06-18] MEDS ORDERED: HYDROmorphone 1 MG/1 ML INJ IV ONE ×3 (12:01→18:02)
[2020-06-18] MEDS ORDERED: ONDANSETRON 4 MG/2 ML INJ IV ONE ×2 (12:02→21:05)
--- NOTE | 2020-06-18 12:07 | Emergency Department Report ---
ED Chest Pain HPI - General Chief Complaint: Chest Pain Stated Complaint: CHEST PAIN/GAS Time Seen by Provider: 06/18/20 11:37 Source: patient, EMS Mode of arrival: Wheelchair Limitations: No Limitations, Physical Limitation - History of Present Illness Initial Comments: 64-year-old male, history of hypertension, diabetes, gastritis, presents to the ED with chest pain. Patient states pain is located in the epigastric area radiating to his back. Patient states he knows "it is my gastritis." Patient reports onset of pain this morning. Patient is diaphoretic, yelling in pain. Patient reports previous history of pancreatitis. He reports that he continues to drink alcohol daily. Patient denies any fever or vomiting. MD Complaint: chest pain -: This morning Onset: during rest Pain Location: epigastric Pain Radiation: back Severity: severe Severity scale (0 -10): 10 Consistency: constant Improves With: nothing Worsens With: nothing re: diaphoresis, dyspnea. denies: nausea, vomting Other Symptoms: denies: cough, fever Treatments Prior to Arrival: none - Related Data Home Medications Medication Instructions Recorded Confirmed Last Taken Baclofen [Lioresal] 5 mg PO Q6HR 10/07/13 04/05/20 10/07/13 Gabapentin 300 mg PO QHS 10/07/13 04/05/20 10/06/17 14:00 Sertraline [Zoloft] 200 mg PO QDAY 10/07/13 04/05/20 10/06/17 09:00 Simvastatin (Nf) [Zocor TAB] 40 mg PO QHS 10/07/13 04/05/20 10/06/17 22:00 lisinopriL [Zestril TAB] 20 mg PO QDAY 10/07/13 04/05/20 10/06/17 09:00 tiZANidine [Zanaflex 4mg TAB] 8 mg PO DAILY 10/08/17 04/05/20 10/06/17 09:00 Previous Rx's Medication Instructions Recorded Last Taken Type Folic Acid 0.4 mg PO QDAY #30 tablet 10/15/17 Unknown Rx Nicotine [Habitrol] 21 mg TD DAILY #30 patch 10/15/17 Unknown Rx Oxycodone HCl/Acetaminophen 1 each PO Q6HR PRN #14 tablet 10/15/17 Unknown Rx [Percocet 10/325 mg] Thiamine [Vitamin B-1] 100 mg PO QDAY #30 tablet 10/15/17 Unknown Rx Allergies Allergy/AdvReac Type Severity Reaction Status Date / Time cephalexin monohydrate Allergy Anaphylaxis Verified 10/07/13 11:58 [From Keflex] Heart Score - HEART Score History: Slightly suspicious EKG: Normal Age: 45-65 Risk factors: > 3 risk factors or hx of atherosclerotic disease Troponin: < normal limit HEART Score: 3 - EKG Read Time Time EKG Completed: 11:33 EKG Read Time: 11:35 ED Review of Systems ROS: Stated complaint: CHEST PAIN/GAS Other details as noted in HPI Comment: All other systems reviewed and negative Constitutional: denies: fever Respiratory: shortness of breath Cardiovascular: chest pain Gastrointestinal: abdominal pain. denies: nausea, vomiting ED Past Medical Hx - Past Medical History Previous Medical History?: Yes Hx Hypertension: Yes Hx CVA: Yes (L sided deficits) Hx Congestive Heart Failure: No Hx Diabetes: Yes Hx Psychiatric Treatment: Yes (PTSD) Hx Asthma: No Hx COPD: Yes Additional medical history: high chol, chronic back pain, Acute RF in 2006 that has resolved - Surgical History Past Surgical History?: Yes Additional Surgical History: cath, (unsure what they cathed and what results were) 2006, vagal nerve stimulator implantation, fusion of L4, L5, S1 after fracture. Hardware of the lumbar spine - Social History Smoking Status: Current Every Day Smoker - Medications Home Medications: Home Medications Medication Instructions Recorded Confirmed Last Taken Type Baclofen [Lioresal] 5 mg PO Q6HR 10/07/13 04/05/20 10/07/13 History Gabapentin 300 mg PO QHS 10/07/13 04/05/20 10/06/17 14:00 History Sertraline [Zoloft] 200 mg PO QDAY 10/07/13 04/05/20 10/06/17 09:00 History Simvastatin (Nf) [Zocor TAB] 40 mg PO QHS 10/07/13 04/05/20 10/06/17 22:00 History lisinopriL [Zestril TAB] 20 mg PO QDAY 10/07/13 04/05/20 10/06/17 09:00 History tiZANidine [Zanaflex 4mg TAB] 8 mg PO DAILY 10/08/17 04/05/20 10/06/17 09:00 History Folic Acid 0.4 mg PO QDAY #30 tablet 10/15/17 04/05/20 Unknown Rx Nicotine [Habitrol] 21 mg TD DAILY #30 patch 10/15/17 04/05/20 Unknown Rx Oxycodone HCl/Acetaminophen 1 each PO Q6HR PRN #14 tablet 10/15/17 04/05/20 Unknown Rx [Percocet 10/325 mg] Thiamine [Vitamin B-1] 100 mg PO QDAY #30 tablet 10/15/17 04/05/20 Unknown Rx ED Physical Exam - General Limitations: No Limitations, Physical Limitation General appearance: alert, other (Appears in obvious pain) - Head Head exam: Present: atraumatic, normocephalic - Eye Eye exam: Present: normal appearance, EOMI - ENT ENT exam: Present: mucous membranes moist - Neck Neck exam: Present: normal inspection - Respiratory Respiratory exam: Present: normal lung sounds bilaterally. Absent: respiratory distress - Cardiovascular Cardiovascular Exam: Present: normal rhythm, bradycardia - GI/Abdominal GI/Abdominal exam: Present: soft, distended (Mild), tenderness (Epigastric) - Extremities Exam Extremities exam: Present: normal inspection - Neurological Exam Neurological exam: Present: alert, oriented X3 - Psychiatric Psychiatric exam: Present: normal affect, normal mood - Skin Skin exam: Present: warm, intact, normal color, diaphoretic ED Course Vital Signs 06/18/20 06/18/20 06/18/20 11:24 13:40 13:44 Temperature 97.9 F Pulse Rate 60 73 Pulse Rate [ Anterior Bilateral Throughout] Respiratory 20 17 Rate Respiratory Rate [Anterior Bilateral Throughout] Blood Pressure Blood Pressure 189/99 154/77 [Left] O2 Sat by Pulse 96 93 96 Oximetry 06/18/20 06/18/20 06/18/20 14:31 15:01 15:45 Temperature Pulse Rate 74 76 69 Pulse Rate [ Anterior Bilateral Throughout] Respiratory 19 17 21 Rate Respiratory Rate [Anterior Bilateral Throughout] Blood Pressure 154/77 176/72 167/72 Blood Pressure [Left] O2 Sat by Pulse 96 97 99 Oximetry 06/18/20 06/18/20 06/18/20 15:54 16:31 17:15 Temperature Pulse Rate 83 82 Pulse Rate [ 79 Anterior Bilateral Throughout] Respiratory 16 Rate Respiratory 22 Rate [Anterior Bilateral Throughout] Blood Pressure 167/72 128/56 Blood Pressure [Left] O2 Sat by Pulse 90 94 Oximetry 06/18/20 17:45 Temperature Pulse Rate 74 Pulse Rate [ Anterior Bilateral Throughout] Respiratory Rate Respiratory Rate [Anterior Bilateral Throughout] Blood Pressure 134/56 Blood Pressure [Left] O2 Sat by Pulse 97 Oximetry - Reevaluation(s) Reevaluation #1: 06/18/20 15:26 Spoke w/ lab, states no hemolysis w/ potassium sample. - Consultations Consultation #1: 06/18/20 15:[address] Cerrato with [facility]. Patient will be transferred to [facility]. Accepting physician Dr. Hopkins. JOSE ALEJANDRO score - Jose Alejandro Score Age > 65: (0) No Aspirin use within the Past 7 Days: (1) Yes (325mg daily) 3 or more CAD Risk Factors: (1) Yes 2 or more Angina events in past 24 hrs: (1) Yes Known CAD with more than 50% Stenosis: (0) No Elevated Cardiac Markers: (0) No ST Deviation Greater than 0.5mm: (0) No JOSE ALEJANDRO Score: 3 ED Medical Decision Making - Lab Data Result diagrams: 06/18/20 11:54 06/18/20 14:47 - EKG Data -: EKG Interpreted by Pa EKG shows normal: sinus rhythm, axis, intervals, QRS complexes, ST-T waves Rate: bradycardia - EKG Data Interpretation: no acute changes - Radiology Data Radiology results: report reviewed, image reviewed - Medical Decision Making 64-year-old male presents to ED with epigastric pain since this morning. Patient arrived hypertensive, diaphoretic, complaining of pain radiating to the back. EKG showed no ST changes. Troponin negative. Due to patient's presentation there was initial concern for possible aortic dissection. CTA chest abdomen and pelvis was ordered. CTA negative for dissection but does show acute pancreatitis. Patient reports history of chronic alcoholism. Patient has lipase level in the 1400s. Potassium also elevated at 5.7. This was confirmed with a repeat blood draw. No evidence of renal failure on labs. Patient denies taking any exogenous potassium. Patient given hyperkalemia t reatment with insulin, D50, calcium chloride, albuterol, and Kayexalate. Patient has required several doses of pain medication. I spoke with [facility] physician, who will be transferring patient to [facility]. Vital signs are stable. Awaiting transport. - Differential Diagnosis Aortic dissection, pancreatitis, gastritis, ACS Critical Care Time: Yes Critical care time in (mins) excluding proc time.: 35 Critical care attestation.: If time is entered above; I have spent that time in minutes in the direct care of this critically ill patient, excluding procedure time. Critical Care Time: 35min ED Disposition Clinical Impression: Acute pancreatitis, Hyperkalemia Disposition: DC/TX-70 ANOTHER TYPE HLTHCARE Is pt being admited?: No Condition: Stable Referrals: PRIMARY CARE, [Primary Care Provider] - 3-5 Days
[2020-06-18 12:35] LABS: INR 1.04 (0.87-1.13)
[2020-06-18 12:36] LABS: Partial Thromboplastin Time 24.3 Sec. (24.2-36.6)
[2020-06-18 12:41] LABS: Basophils # (Auto) 0.1 K/mm3 (0.0-0.1); Basophils % (Auto) 0.7 % (0.0-1.8); Eosinophils # (Auto) 0.1 K/mm3 (0.0-0.4); Eosinophils % (Auto) 0.7 % (0.0-4.3); Hematocrit 46.3 % (35.5-45.6); Hemoglobin 15.7 gm/dl (11.8-15.2); Lymphocytes % (Auto) 13.4 % (13.4-35.0); Mean Corpuscular HGB Conc 34 % (32-34); Mean Corpuscular Volume 99 fl (84-94); Monocytes # (Auto) 0.8 K/mm3 (0.0-0.8); Monocytes % (Auto) 9.9 % (0.0-7.3); Platelet Count 158 K/mm3 (140-440); Red Blood Count 4.69 M/mm3 (3.65-5.03); Red Cell Distribution Width 13.3 % (13.2-15.2)
[2020-06-18] MEDS ORDERED: HYDROmorphone 1 MG/1 ML INJ IV PRN (13:01)
[2020-06-18] MEDS ORDERED: ONDANSETRON 4 MG/2 ML INJ IV PRN (13:02)
--- NOTE | 2020-06-18 13:29 | XRay Report ---
CHEST 2 VIEWS, 06/18/2020 INDICATION: Chest pain COMPARISON: Chest radiograph, 04/05/2020 FINDINGS: Support devices: Spinal stimulator device is present. Heart: The cardiac silhouette is normal in size. Lungs/pleura: The lungs are clear of focal airspace disease or significant pleural effusion. Additional findings: No significant acute abnormality. IMPRESSION: 1. No evidence of acute cardiopulmonary process. Signer Name: Cassandra Jimenez MD Signed: 06/18/2020 1:25 PM Workstation Name: [id number]
[2020-06-18] MEDS ORDERED: LIDOCAINE VISCOUS 2% 15 ML ORAL LIQD PO ONE (13:35)
[2020-06-18] MEDS ORDERED: ALUM-MAG HYDROXIDE-SIMETHICONE 200-200-20MG/5ML ORAL LIQD 30 ML PO ONE (13:35)
[2020-06-18] MEDS ORDERED: PANTOPRAZOLE 40 MG INJ IV ONE (13:35)
[2020-06-18 13:47] LABS: Alanine Aminotransferase 61 units/L (7-56); Albumin 3.9 g/dL (3.9-5); BUN/Creatinine Ratio 12; Blood Urea Nitrogen 11 mg/dL (9-20); Calcium 9.5 mg/dL (8.4-10.2); Hemolysis Index 18
--- NOTE | 2020-06-18 14:00 | Cat Scan Report ---
CTA CHEST, ABDOMEN, AND PELVIS WITHOUT AND WITH CONTRAST INDICATION / CLINICAL INFORMATION: Chest pain, evaluate for dissection. TECHNIQUE: Axial CT images were obtained through the chest, abdomen, and pelvis before and after injection of 10 0 cc Omnipaque 350 IV contrast. 3 plane MIP and/or 3D reconstructions were produced. All CT scans at this location are performed using CT dose reduction for ALARA by means of automated exposure control. COMPARISON: None available. FINDINGS: HEART: No significant abnormality. THORACIC AORTA: No significant abnormality. GREAT VESSELS: No significant abnormality. PULMONARY ARTERIES: No significant abnormality. ADDITIONAL CHEST FINDINGS: No significant abnormality. ABDOMINAL AORTA: No significant abnormality. RENAL ARTERIES: No significant abnormality. CELIAC ARTERY: No significant abnormality. SUPERIOR MESENTERIC ARTERY: No significant abnormality. INFERIOR MESENTERIC ARTERY: No significant abnormality. RIGHT ILIAC ARTERIES: No significant abnormality.. LEFT ILIAC ARTERIES: No significant abnormality.. ADDITIONAL ABDOMINOPELVIC FINDINGS: Mild inflammatory fat stranding and trace fluid surrounds the anne creas consistent with acute interstitial pancreatitis. No focal pancreatic lesion is detected. There is mild hepatic steatosis. No obvious biliary abnormality. Bilateral simple renal cysts. Mild diverti culosis of the distal colon. SKELETAL STRUCTURES: Mild degenerative changes throughout the spine. IMPRESSION: Unremarkable CTA of the chest abdomen and pelvis. No evidence for aortic dissection. Findings consistent with acute interstitial pancreatitis. Hepatic steatosis. Bilateral simple renal cysts. Sigmoid diverticulosis. Signer Name: Enoc Denise Jr, MD Signed: 06/18/2020 1:55 PM Workstation Name: [id number]
[2020-06-18] MEDS ORDERED: INSULIN REGULAR, HUMAN 100 UNITS/1 ML IV ONE (15:19)
[2020-06-18] MEDS ORDERED: DEXTROSE 50% IN WATER (25GM) 50 ML SYRINGE IV ONE (15:19)
[2020-06-18] MEDS ORDERED: CALCIUM CHLORIDE 1,000 MG/10 ML SYRINGE IV ONE (15:20)
[2020-06-18] MEDS ORDERED: ALBUTEROL 2.5 MG/3 ML NEBU IH ONE (15:20)
[2020-06-18] MEDS ORDERED: SODIUM POLYSTYRENE 15 GM/60 ML ORAL LIQD PO ONE (15:20)
[2020-06-18 15:47] LABS: Bilirubin,Urine NEG (Negative); Blood,Urine SM (Negative); Color,Urine Yellow (Yellow); Mucus,Urine FEW /HPF; Urobilinogen,Urine < 2.0 mg/dL (<2.0); WBC,Urine < 1.0 /HPF (0.0-6.0)
[2020-06-18] MEDS ORDERED: HYDROmorphone 1 MG/1 ML INJ ONE (18:06)
[2020-06-18] MEDS ORDERED: ONDANSETRON 4 MG/2 ML INJ ONE (20:41)
[2020-06-18] MEDS ORDERED: MORPHINE 4 MG/1 ML INJ ONE (20:42)
[2020-06-18] MEDS ORDERED: MORPHINE 4 MG/1 ML INJ IV ONE (21:05)
[2020-06-18 21:26] VITALS: BP 134/59
--- NOTE | 2020-06-19 13:54 | Electrocardiograph Report ---
[facility] Test Date: 2020-06-18 Test Time: 11:33:47 Pat Name: CHRISTI DEL ROSARIO Department: Room: Gender: M Supervisor [employer] Loading: : 1955 Requested By: ALFRED DINERO Order Number: [id number] Reading MD: Tanvi Sarabia Measurements Intervals [place] Rate: 51 P: -8 [place]: 160 QRS: 131 QRSD: 90 T: 130 QT: 452 QTc: 415 Interpretive Statements Sinus bradycardia Right axis deviation Low voltage, precordial leads Abnrm T, consider ischemia, anteroseptal lds No previous ECG available for comparison Electronically Signed On 06-19-2020 13:53:47 EDT by Tanvi Sarabia
--- NOTE | 2020-06-19 13:54 | Electrocardiograph Report ---
[facility] Test Date: 2020-06-18 Test Time: 16:14:52 Pat Name: CHRISTI DEL ROSARIO Department: Room: Gender: M Community Recreation Coordinator: HUE : 1955 Requested By: JEFFERY DANIELS Order Number: [id number] Reading MD: Tanvi Sarabia Measurements Intervals [place] Rate: 73 P: 78 MS: 177 QRS: 77 QRSD: 92 T: 77 QT: 363 QTc: 400 Interpretive Statements Sinus rhythm Compared to ECG 06/18/2020 11:33:47 Electronically Signed On 06-19-2020 13:54:16 EDT by Tanvi Sarabia
== END 2020-06-18 21:34 | disposition other institution (70) ==
LOC: ED 11:19
DX: K85.90 Acute pancreatitis without necrosis or infection, unspecified (principal); E87.5 Hyperkalemia; I10 Essential (primary) hypertension; E11.9 Type 2 diabetes mellitus without complications; J44.9 Chronic obstructive pulmonary disease, unspecified; F17.200 Nicotine dependence, unspecified, uncomplicated; Z98.890 Other specified postprocedural states; Z79.899 Other long term (current) drug therapy; Z88.8 Allergy status to other drugs, medicaments and biological substances
CPT/HCPCS: 36415; 71046; 71275; 74174; 80053; 81001; 83690; 83735; 84132; 84484; 85025; 85610; 85730; 93005; 94640; 96374; 96375; 96376; 99285; C9113; J1170; J2270; J2405; Q9967; 94644; J1815

== ENCOUNTER 2020-09-26 00:25 | Emergency (ER) | payer MEDICARE ==
[2020-09-26 03:47] VITALS: BP 104/86
== END 2020-09-26 10:30 ==
LOC: ED 00:25
DX: M54.9 Dorsalgia, unspecified (principal); Z53.21 Procedure and treatment not carried out due to patient leaving prior to being seen by health care provider